=== PATIENT | male | born 1995 | race Caucasian/White ===

== ENCOUNTER 2016-05-05 03:23 | Emergency (ER) | payer SELFPAY ==
[~2016-05-05] VITALS: Ht 162.6 cm; Wt 80.5 kg
[2016-05-05 03:28] VITALS: Ht 162.6 cm; Wt 80.5 kg
[2016-05-05] MEDS ORDERED: ONDANSETRON (ODT) 4 MG TAB ODT STA (04:24)
[2016-05-05] MEDS ORDERED: HYDROCODONE/APAP (5/325) TAB PO ONE (04:30)
--- NOTE | 2016-05-05 05:33 | RADRPT ---
PROCEDURE: LEFT HAND - 3 VIEWS CLINICAL INDICATION: 20-year-old male with left hand pain following trauma. TECHNIQUE: AP, lateral and oblique views of the left hand were obtained. The images reviewed on a PACS workstation. COMPARISON: Left wrist obtained concurrently. FINDINGS: The bones of the hand appear intact, with no evidence of fracture, dislocation, or subluxation. Ther e is a nondisplaced fracture through the distal left radius extending from the metadiaphyseal region into the joint space. There is no evidence for dislocation. There is no significant angulation. The bone marrow mineralization is within normal limits. IMPRESSION: Nondisplaced intra-articular distal left radius fracture. .Alfonso Buenrostro MD, Date Time Electronically viewed and signed by .Alfonso Buenrostro MD, on 05/05/2016 05:33 .Wong/
--- NOTE | 2016-05-05 05:34 | RADRPT ---
PROCEDURE: LEFT WRIST - 3 VIEWS CLINICAL INDICATION: 20-year-old male with left wrist pain following trauma. TECHNIQUE: AP, lateral and oblique views of the left wrist were performed. The images reviewed on a PACS workstation. COMPARISON: Left hand obtained concurrently. FINDINGS: There is a nondisplaced oblique fracture through the distal left radius extending from the metadiaph yseal region into the joint space. There is no significant angulation. The bone marrow mineralizat ion is within normal limits. IMPRESSION: Nondisplaced distal left radius fracture. .Alfonso Buenrostro MD, Date Time Electronically viewed and signed by .Alfonso Buenrostro MD, on 05/05/2016 05:34 .Wong/
--- NOTE | 2016-05-05 05:35 | RADRPT ---
PROCEDURE: LEFT FOREARM - 2 VIEWS CLINICAL INDICATION: 20-year-old male with trauma. TECHNIQUE: AP and lateral views of the left forearm were obtained. The images were viewed on a PAC S workstation. COMPARISON: Left wrist obtained concurrently. FINDINGS: There is a nondisplaced oblique fracture through the distal left radius extending from the metadiaph yseal region into the joint space. The wrist and elbow joint appear intact without evidence for disl ocation. The bone marrow mineralization is within normal limits. IMPRESSION: Nondisplaced oblique intra-articular distal left radius fracture. .Alfonso Buenrostro MD, MD Date Time Electronically viewed and signed by .Alfonso Buenrostro MD, on 05/05/2016 05:35 .Wong/
--- NOTE | 2016-05-05 05:36 | RADRPT ---
PROCEDURE: LEFT ELBOW - 3 VIEWS CLINICAL INDICATION: 20-year-old male with left elbow pain following trauma. TECHNIQUE: AP, lateral and oblique views of the left elbow were obtained. The images were viewed on a PACS workstation. COMPARISON: None. FINDINGS: There is normal mineralization and alignment. No fracture or osseous lesion is identified. There are normal joints without evidence of arthritis or effusion. No radiopaque foreign body is seen. IMPRESSION: Unremarkable left elbow radiographs. .Alfonso Buenrostro MD, Date Time Electronically viewed and signed by .Alfonso Buenrostro MD, on 05/05/2016 05:35 .M/
--- NOTE | 2016-05-05 05:36 | RADRPT ---
PROCEDURE: LEFT HUMERUS - 2 VIEWS CLINICAL INDICATION: 20-year-old male with left arm pain following trauma. TECHNIQUE: AP and lateral views of the left humerus were performed. The images reviewed on a PACS workstation. COMPARISON: Left shoulder and elbow radiographs obtained concurrently. FINDINGS: There is normal osseous mineralization and alignment. No fracture or osseous lesion is identified. T here are normal joints without evidence of arthritis or dislocation. No radiopaque foreign body is s een. IMPRESSION: Unremarkable left humerus radiographs. .Alfonso Buenrostro MD, MD Date Time Electronically viewed and signed by .Alfonso Buenrostro MD, MD on 05/05/2016 05:36 .M/
--- NOTE | 2016-05-05 05:37 | RADRPT ---
PROCEDURE: LEFT SHOULDER CLINICAL INDICATION: 20-year-old male with left shoulder pain following trauma. TECHNIQUE: Two-views of the left shoulder were obtained. The images reviewed on a PACS workstation . COMPARISON: Left humerus obtained concurrently. FINDINGS: No evidence of fracture or dislocation is seen. The glenohumeral and acromioclavicular joint spaces appear preserved. Limited views of the clavicle and thorax are unremarkable. IMPRESSION: Unremarkable left shoulder radiographs. .Alfonso Buenrostro MD, Date Time Electronically viewed and signed by .Alfonso Buenrostro MD, on 05/05/2016 05:36 .M/
[2016-05-05] MEDS ORDERED: HYDR-906 PO (05:48)
[2016-05-05] MEDS ORDERED: NAPR-260 PO (05:48)
--- NOTE | 2016-05-10 23:51 | ERD ---
ER Documentation Chief Complaint Date/Time DATE: 05/10/16 TIME: 23:44 Chief Complaint left wrist pain jammed between two metals at work HPI Patient is a R hand dominant 20 yo male presents secondary to complaints of hearing a loud "pop" today in his left wrist when it was jammed between 2 metal poles at work. He has taken no meds. Pain is currently 8/10 and constant. No other complaints or injuries reported at this time. ROS All systems reviewed and are negative except as per history of present illness. Medications Home Meds Active Scripts Naproxen* (Naprosyn*) 500 Mg Tablet, 500 MG PO BID Y for PAIN AND/OR INFLAMMATION, #30 TAB Prov:ESTHER LATIF PA-C 05/05/16 Hydrocodone/Acetaminophen (Bruce 5-325 Tablet) 1 Each Tablet, 1 TAB PO Q6H Y for PAIN, #15 TAB Prov:ESTHER LATIF PA-C 05/05/16 Allergies Allergies: Coded Allergies: No Known Allergy (Unverified , 05/05/16) PMhx/Soc Medical and Surgical Hx: pt denies Medical Hx, pt denies Surgical Hx Hx Alcohol Use: No Hx Substance Use: No Hx Tobacco Use: No Smoking Status: Never smoker FmHx non contributory for chief complaint. Physical Exam Vitals temp: 98.3F Pulse 81 BP 142/77 Resp 20 O2 sat 98% RA Physical Exam Const: Pt is resting comfortably in no acute distress. Head: Atraumatic Eyes: Normal Conjunctiva ENT: Normal External Ears, Nose and Mouth. Neck: Full range of motion..~ No meningismus. Resp: Clear to auscultation bilaterally Cardio: Regular rate and rhythm, no murmurs Abd: Soft, non tender, non distended. Normal bowel sounds Skin: No petechiae or rashes Back: No midline or flank tenderness Ext: There is mild TTP of the L wrist with assocaited ecchymoses about the lateral and medial portions. Pt cannot ROM secondary to pain. Sensation intact in the left upper extremity. Neur: Awake and alert Psych: Normal Mood and Affect Results 24 hrs Current Medications Medications (Trade) Dose Ordered Sig/Sandee Route PRN Reason Start Time Stop Time Status Last Admin Dose Admin Acetaminophen/ Hydrocodone Bitart (Bruce (5/325)) 1 tab ONCE ONCE PO 05/05/16 04:30 05/05/16 04:31 DC 05/05/16 04:38 Ondansetron HCl (Zofran Odt) 4 mg ONCE STAT ODT 05/05/16 04:24 05/05/16 04:26 DC 05/05/16 04:38 Procedures/MDM 20 yo male presents secondary to complaints of left UE pain after injury. Pt was given PO norco in the department and was feeling improved on reevaluation. PROCEDURE: LEFT ELBOW - 3 VIEWS CLINICAL INDICATION: 20-year-old male with left elbow pain following trauma. TECHNIQUE: AP, lateral and oblique views of the left elbow were obtained. The images were viewed on a PACS workstation. COMPARISON: None. FINDINGS: There is normal mineralization and alignment. No fracture or osseous lesion is identified. There are normal joints without evidence of arthritis or effusion. No radiopaque foreign body is seen. IMPRESSION: Unremarkable left elbow radiographs. .Alfonso Buenrostro MD, Date Time Electronically viewed and signed by .Alfonso Buenrostro MD, MD on 05/05/2016 05:35 .M/ CC: ESTHER LATIF PA-C PROCEDURE: LEFT FOREARM - 2 VIEWS CLINICAL INDICATION: 20-year-old male with trauma. TECHNIQUE: AP and lateral views of the left forearm were obtained. The images were viewed on a PACS workstation. COMPARISON: Left wrist obtained concurrently. FINDINGS: There is a nondisplaced oblique fracture through the distal left radius extending from the metadiaphyseal region into the joint space. The wrist and elbow joint appear intact without evidence for dislocation. The bone marrow mineralization is within normal limits. IMPRESSION: Nondisplaced oblique intra-articular distal left radius fracture. .Alfonso Buenrostro MD, MD Date Time Electronically viewed and signed by .Alfonso Buenrostro MD, MD on 05/05/2016 05:35 .M/ CC: ESTHER LATIF PA-C PROCEDURE: LEFT HAND - 3 VIEWS CLINICAL INDICATION: 20-year-old male with left hand pain following trauma. TECHNIQUE: AP, lateral and oblique views of the left hand were obtained. The images reviewed on a PACS workstation. COMPARISON: Left wrist obtained concurrently. FINDINGS: The bones of the hand appear intact, with no evidence of fracture, dislocation, or subluxation. There is a nondisplaced fracture through the distal left radius extending from the metadiaphyseal region into the joint space. There is no evidence for dislocation. There is no significant angulation. The bone marrow mineralization is within normal limits. IMPRESSION: Nondisplaced intra-articular distal left radius fracture. .Alfonso Buenrostro MD, MD Date Time Electronically viewed and signed by .Alfonso Buenrostro MD, MD on 05/05/2016 05:33 .M/ CC: ESTHER LATIF PA-C PROCEDURE: LEFT HUMERUS - 2 VIEWS CLINICAL INDICATION: 20-year-old male with left arm pain following trauma. TECHNIQUE: AP and lateral views of the left humerus were performed. The images reviewed on a PACS workstation. COMPARISON: Left shoulder and elbow radiographs obtained concurrently. FINDINGS: There is normal osseous mineralization and alignment. No fracture or osseous lesion is identified. There are normal joints without evidence of arthritis or dislocation. No radiopaque foreign body is seen. IMPRESSION: Unremarkable left humerus radiographs. .Alfonso Buenrostro MD, MD Date Time Electronically viewed and signed by .Alfonso Buenrostro MD, MD on 05/05/2016 05:36 .M/ CC: ESTHER LATIF PA-C PROCEDURE: LEFT SHOULDER CLINICAL INDICATION: 20-year-old male with left shoulder pain following trauma. TECHNIQUE: Two-views of the left shoulder were obtained. The images reviewed on a PACS workstation. COMPARISON: Left humerus obtained concurrently. FINDINGS: No evidence of fracture or dislocation is seen. The glenohumeral and acromioclavicular joint spaces appear preserved. Limited views of the clavicle and thorax are unremarkable. IMPRESSION: Unremarkable left shoulder radiographs. .Alfonso Buenrostro MD, MD Date Time Electronically viewed and signed by .Alfonso Buenrostro MD, MD on 05/05/2016 05:36 .M/ CC: ESTHER LATIF PA-C PROCEDURE: LEFT WRIST - 3 VIEWS CLINICAL INDICATION: 20-year-old male with left wrist pain following trauma. TECHNIQUE: AP, lateral and oblique views of the left wrist were performed. The images reviewed on a PACS workstation. COMPARISON: Left hand obtained concurrently. FINDINGS: There is a nondisplaced oblique fracture through the distal left radius extending from the metadiaphyseal region into the joint space. There is no significant angulation. The bone marrow mineralization is within normal limits. IMPRESSION: Nondisplaced distal left radius fracture. .Alfonso Buenrostro MD, MD Date Time Electronically viewed and signed by .Alfonso Buenrostro MD, on 05/05/2016 05:34 .M/ CC: ESTHER LATIF PA-C Patient was splinted in the department and was NVI post splint application. The pt was given ortho follow up. I have low suspicion for displaced fracture or fracture requiring reduction in the department. The pt agrees with discharge plan and diagnosis. He states he will FU with ortho. Hew as given an rx for Naproxen and Bruce. Departure Diagnosis: Primary Impression: Distal radius fracture, left Additional Impression: Wrist injury Condition: Fair Patient Instructions: Treating Wrist Fractures Referrals: VARINDER MARTINEZ MD [facility] Hours: Mon-Sat 9:00 AM - 5:00 PM Additional Instructions: Follow-up with your primary care physician within 1 week. Return to the emergency department immediately should you have any new or worsening symptoms, uncontrolled fevers, or other unexplained symptoms. Take all medications as directed. ESTHER LATIF PA-C May 10, 2016 23:51
== END 2016-05-05 06:23 | disposition home or self-care (01) ==
LOC: FTE 03:23
DX: S52.572A Other intraarticular fracture of lower end of left radius, initial encounter for closed fracture (principal); W23.1XXA Caught, crushed, jammed, or pinched between stationary objects, initial encounter; Y92.89 Other specified places as the place of occurrence of the external cause
CPT/HCPCS: 73030; 73060; 73090